=== PATIENT | female | born 1955 | race Caucasian/White ===

== ENCOUNTER 2017-01-27 20:49 | Emergency (ER) | payer OTHER ==
[~2017-01-27] VITALS: Ht 152.4 cm; Wt 74.8 kg
[2017-01-27 22:00] LABS: BASOPHIL % 0.6 % (0-2); PLATELET COUNT 201 x10^3mcL (130-400)
[2017-01-27 22:01] LABS: RED CELL DISTRIBUTION WIDTH 14.7 % (11.5-14.5)
[2017-01-27 22:10] LABS: CALCIUM 9.4 mg/dL (8.5-10.1); CARBON DIOXIDE 27.2 mmol/L (21-32); CHLORIDE SERUM 103 mmol/L (98-107); CREATININE SERUM 0.8 mg/dL (0.6-1.0); GFR1 > 60 mL/min; GLUCOSE SERUM 152 mg/dL (74-106); POTASSIUM SERUM 3.3 mmol/L (3.5-5.1); SODIUM SERUM 141 mmol/L (136-145)
[2017-01-27 22:14] LABS: ALBUMIN 4.3 g/dL (3.4-5.0); ALKALINE PHOSPHATASE 58 U/L (46-116); ALT/SGPT 34 U/L (14-59); AST/SGOT 24 U/L (15-37); TOTAL PROTEIN, SERUM 7.7 g/dL (6.4-8.2)
[2017-01-28 02:07] VITALS: BP 125/70
== END 2017-01-28 02:07 | disposition home or self-care (01) ==
LOC: ED 20:49
PROVIDERS: Emergency Medicine
DX: H81.10 Benign paroxysmal vertigo, unspecified ear (principal); H83.09 Labyrinthitis, unspecified ear; R11.2 Nausea with vomiting, unspecified
CPT/HCPCS: 83880; J2405; J2765; J7030; J8597; Q0092

== ENCOUNTER 2017-02-14 23:01 | Inpatient (IN) | payer OTHER ==
[~2017-02-14] VITALS: Ht 152.4 cm; Wt 68.0 kg
--- NOTE | 2017-02-14 23:41 | NUR ---
EKG IN PROGRESS.
--- NOTE | 2017-02-14 23:43 | NUR ---
REC'D A 61 YEAR OLD FEMALE IN RM OB WITH C/O DIZZINESS X 1 DAY. PER PT, "IT FEELS LIKE THE ROOM IS SPINNING". PT REPORTS SIMILAR SYMPTOMS 2 WEEKS AGO AND PRESCRIBED ZOFRAN. PER PT, "I DIDNT TAKE THE MEDICINE BECAUSE I WORKED AND FORGOT WHERE I PLACED THE MEDICINE". PT HAD 1 EPISODE OF VOMITING IN THE ROOM. PT AAOX4, RESP EVEN AND UNLABORED. ON CM. CALL LIGHT WITHIN REACH, WILL CONTINUE TO MONITOR.
[2017-02-15 00:01] LABS: BASOPHIL % 0.3 % (0-2); PLATELET COUNT 200 x10^3mcL (130-400)
[2017-02-15 00:05] LABS: CALCIUM 8.9 mg/dL (8.5-10.1); CARBON DIOXIDE 27.1 mmol/L (21-32); CREATININE SERUM 1.1 mg/dL (0.6-1.0); POTASSIUM SERUM 3.3 mmol/L (3.5-5.1); RED CELL DISTRIBUTION WIDTH 14.8 % (11.5-14.5)
[2017-02-15 00:09] LABS: ALBUMIN 4.1 g/dL (3.4-5.0); BILIRUBIN TOTAL 0.4 mg/dL (0.20-1.00); TOTAL PROTEIN, SERUM 7.3 g/dL (6.4-8.2)
[2017-02-15 00:18] LABS: CK-MB 0.6 ng/mL (0-3.6)
--- NOTE | 2017-02-15 00:30 | NUR ---
PT AAOX4, RESP EVEN AND UNLABORED. PT REPORTS SENSITIVITY TO THE LIGHT.
--- NOTE | 2017-02-15 01:29 | NUR ---
PT AAOX4, RESP EVEN AND UNLABORED. PT REPORTS "TURNING OFF THE LIGHT HELPS". ON CM WILL CONTINUE TO MONITOR.
--- NOTE | 2017-02-15 01:40 | NUR ---
REPORT GIVEN TO MOISES ALEXIS TO ASSUME CARE .
[2017-02-15 02:13] VITALS: BP 145/68
--- NOTE | 2017-02-15 02:29 | NUR ---
RECIEVED PT FROM ER VIA GURNEY ACCOMPANIED BY THE NURSE. PT IS A/A/O X4. C/O DIZZINESS AND SENSITIVITY TO LIGHT. BREATH SOUNDS CLEAR. BREATHING EVEN AND UNLABORED ON ROOM AIR, SPO2 99%. DENIES CHEST PAIN AND PRESSURE. ON TELE # 19, SINUS RHYTHYM ON THE MONITOR. BOWEL SOUNDS ACTIVE. NO C/O N/V AND ABD PAIN THUS FAR. IV IV NOTED ON THE RAC. MADE PT COMFORTABLE. PLACED CALL LIGHT WITH IN REACH. WILL CONTINUE TO MONITOR.
[2017-02-15] MEDS ORDERED: ONDANSETRON4 M3 PO (04:07)
[2017-02-15] MEDS ORDERED: MECLIZINE HYDRO25 M1 PO (04:07)
[2017-02-15 04:13] LABS: CHOLESTEROL/HDL RATIO 3.6; MAGNESIUM 1.8 mg/dL (1.8-2.4); PHOSPHOROUS 2.3 mg/dL (2.5-4.9)
[2017-02-15 04:18] LABS: T3 TOTAL 1.51 ng/mL
[2017-02-15 04:19] LABS: UA SPECIFIC GRAVITY <=1.005 (1.005-1.035); microscopic required? YES; urine erythrocyte TRACE (NEGATIVE)
[2017-02-15 04:21] LABS: FREE T4 1.13 ng/dL (0.76-1.46); FREE THYROXINE INDEX 2.7 ug/dL (1.4-4.5); T4(THYROXINE) 8.8 ug/dL (4.7-13.3)
--- NOTE | 2017-02-15 05:12 | NUR ---
PT RESTING WITH EYES CLOSED. EASILY AROUSABLE WITH VERBAL STIMULI. WHEN ASKED ABOUT THE DIZZINESS. PT STATED "I FEEL LESS DIZZY WHEN IM JUST LYING DOWN. AND IT HEPLS WHEN MY EYES IS CLOSED.". DENIES NAUSEA THUS FAR. IV INTACT AND INFUSING ORDERED. MADE PT COMFORTABLE. WILL ENDORSE TO THE AM NURSE ACCORDINGLY.
[2017-02-15 06:04] VITALS: BP 147/76
--- NOTE | 2017-02-15 07:40 | NUR ---
PT AWAKE IN BED, NO ACUTE DISTRESS. PT ABLE TO AMBULATE TO BED SIDE COMMODE AND URINATE. PT NOT COMPLAINING OF ANY PAIN AT THIS TIME. PT GETTING ULTRASOUND DONE. IV FLUIDS INFUSING. CALL LIGHT WITHIN REACH. WILL CONTINUE TO MONITOR.
[2017-02-15 08:00] VITALS: BP 111/49
--- NOTE | 2017-02-15 11:48 | NUR ---
P.T. NOTES RECEIVED PT EVAL ORDER. CHART REVIEWED. Pt CLEARED PER RN FOR PT EVAL. NOTED PATIENT NOT IN ROOM FOR EVAL. PER RN AND DOCTOR, Pt WENT DOWN FOR MRI. Pt PENDING MRI TO R/O BRAINSTEM INVOLVEMENT, PER DR WASHINGTON, SEVERE NYSTAGMUS. WILL AWAIT MRI RESULTS PRIOR TO PT EVAL. 1 PVE
--- NOTE | 2017-02-15 12:45 | NUR ---
PT SITTING UP IN BED. NO ACUTE DISTRESS. C/O MILD DIZZINESS BUT TOLERABLE AT THIS TIME. WITH NYSTAGMUS TO BILAT EYES. NO C/O NAUSEA. IVF INFUSING. BED IN LOWEST POSITION, CALL LIGHT WITHIN REACH. WILL CONTINUE TO MONITOR.
[2017-02-15 13:38] VITALS: BP 127/64
--- NOTE | 2017-02-15 14:30 | NUR ---
PT ASLEEP IN BED, NO ACUTE DISTRESS. IV FLUIDS INFUSING. CALL LIGHT WITHIN REACH. WILL CONTINUE TO MONITOR
[2017-02-15 17:36] VITALS: BP 114/54
--- NOTE | 2017-02-15 18:52 | NUR ---
PT RESTING IN BED, DOCTOR TUAN AT BEDSIDE ASSESSING PT. NO ACUTE DISTRESS. IV FLUIDS INFUSING. CALL LIGHT WITHIN REACH, BED IN LOWEST POSITION. WILL ENDORSE INCOMING SHIFT
--- NOTE | 2017-02-15 20:17 | NUR ---
PT CURRENTLY RESTING IN BED, NO ACUTE DISTRESS. A/O X4, C/O MILD DIZZINESS. TELE #19 SHOWING SINUS BRADYCARDIA, DENIES CHEST PAIN. PULSES PALPABLE IN ALL EXTREMITIES, NO EDEMA NOTED. LUNG SOUNDS CTA BILATERALLY. BOWEL SOUNDS ACTIVE, LAST BM 02/14/17. VOIDING WELL. MILD GENERALIZED WEAKNESS NOTED, AMBULATORY WITH ASSIST. SKIN INTACT. DENIES PAIN. IV PATENT AND INTACT. BED IN LOWEST POSITION, SIDE RAILS UP X2, SCDS IN PLACE, CALL LIGHT WITHIN REACH. WILL CONTINUE TO MONITOR.
[2017-02-15 21:56] VITALS: BP 107/49
[2017-02-16] VITALS (7 sets, daily range): BP systolic 99–176; BP diastolic 50–78
--- NOTE | 2017-02-16 01:00 | NUR ---
PT CURRENTLY RESTING IN BED, NO ACUTE DISTRESS. WILL CONTINUE TO MONITOR.
--- NOTE | 2017-02-16 05:45 | NUR ---
PT SLEPT PERIODICALLY THROUGHOUT NIGHT, NO ACUTE DISTRESS. ALL NEEDS MET AND ATTENDED TO. NO SIGNIFICANT CHANGES. IV PATENT AND INTACT. BED IN LOWEST POSITION, SIDE RAILS UP X2, SCDS IN PLACE, CALL LIGHT WITHIN REACH. WILL ENDORSE CARE TO ONCOMING NURSE.
[2017-02-16 06:07] LABS: BASOPHIL % 0.4 % (0-2); PLATELET COUNT 168 x10^3mcL (130-400)
[2017-02-16 06:25] LABS: CALCIUM 7.9 mg/dL (8.5-10.1); CARBON DIOXIDE 26.6 mmol/L (21-32); CHLORIDE SERUM 110 mmol/L (98-107); CREATININE SERUM 0.7 mg/dL (0.6-1.0); GFR1 > 60 mL/min; GLUCOSE SERUM 96 mg/dL (74-106); MAGNESIUM 1.9 mg/dL (1.8-2.4); PHOSPHOROUS 3.9 mg/dL (2.5-4.9); POTASSIUM SERUM 4.1 mmol/L (3.5-5.1); SODIUM SERUM 142 mmol/L (136-145)
[2017-02-16 06:33] LABS: RED CELL DISTRIBUTION WIDTH 15.1 % (11.5-14.5)
--- NOTE | 2017-02-16 07:35 | NUR ---
RECEIVED PT IN NO ACUTE DISTRESS. AAOX4. C/O MILD DIZZINESS AND NOLASCO BUT TOLERABLE AT THIS TIME. NO NYSTAGMUS NOTED AT THIS TIME. DENIES PAIN. IVF INFUSING. BED IN LOWEST POSITION, SIDE RAILS UP X2. CALL LIGHT WITHIN REACH. WILL CONTINUE TO MONITOR.
--- NOTE | 2017-02-16 12:11 | NUR ---
PT AMBULATED IN HALLWAY 2X. GAIT STEADY. C/O MILD DIZZINESS AND NOLASCO BUT TOLERABLE. IVF IVF INFUSING. WILL CONTINUE TO MONITOR.
--- NOTE | 2017-02-16 18:31 | NUR ---
PT SITTING UP IN CHAIR EATING DINNER. NO ACUTE DISTRESS. DENIES DIZZINESS AT THIS TIME. NO C/O PAIN. IVF TO RAC. CALL LIGHT WITHIN REACH. WILL ENDORSE TO INCOMING SHIFT.
--- NOTE | 2017-02-16 19:30 | NUR ---
PT IS ALERT AND ORIENTED. PLEASANT AND COOPERATIVE. NO C/O DIZZINESS. PT STATED SHE IS ABLE TO WALK WITHOUT DIZZINESS THIS TIME. PT ALSO STATED THAT SHE WAS EVALUATED WITH [facility] BUT SHE IS NOT GOING THERE BECAUSE SHE IS ALRIGHT. LUNGS CLEAR ON AUSCULTAITONS BILATERALLY. BOWEL SOUNDS ACTIVE AND PRESENT. NO DISTENTION NOTED. PT IS AMBULATORY. HARLEY SCD'S TO BOTH BLE FOR DVT PROPHYLAXIS. IV HEPLOCK. PT WILL RECEIVED ROCPHINE FOR UTI. WILL MONITOR.
--- NOTE | 2017-02-17 03:02 | NUR ---
PT WAS MEDICTED WITH ATIVAN FOR ANXIETY. WILL MONITOR.
[2017-02-17 05:44] VITALS: BP 108/54
--- NOTE | 2017-02-17 05:46 | NUR ---
PT IS RESTING RIGHT NOW SLEEPING GOOD, NOTED THAT AFTER A DOSE OF ATIVAN PO SHE RESTED. AND THE BP IS WNL SYSTOLIC BP 108/54. FROM BEING ALMOST 200 SYSTOLIC RIGHT NOW. WILL MONITOR.
--- NOTE | 2017-02-17 07:30 | NUR ---
PT IS ALERT AND ORIENTED X 4. PLEASANT AND COOPERATIVE. LUNGS CLEAR ON AUSCULTATIONS BILATERALLY UPPER AND LOWER BASES. 02SAT 98%. ROOM AIR. PT WAS ABLE TO REST AFTER THE ATIVAN PO GIVEN. PT VERBALIZED SHE WAS ANXIOUS. HEPLOCK IN THE RIGHT AC. PATENT AND INTACT. NO C/O DIZZINESS. STILL GETTING ROCEPHIN IVPB FOR UTI. NO ADVERSE REACTION NOTED. WILL MONITOR. WAS RESTLESS LAST NIGHT AND THE BP WAS ELEVATED. SHE CALMED DOWN AFTER TALKING TO DR. HAGEN AND THE ATIVAN. WILL MONITOR.
[2017-02-17 09:19] VITALS: BP 137/81
--- NOTE | 2017-02-17 10:30 | NUR ---
REPORT RECIEVED FROM PM NURSE, NATHAN ENDORCED. PT RESTING IN BED NO SIGNS OF DISTRESS. CALL LIGHT IN REACH WILL CONTINUE TO MONITOR.
[2017-02-17] MEDS ORDERED: SCOP TD (11:45)
[2017-02-17] MEDS ORDERED: COL100 PO (11:46)
[2017-02-17 12:50] VITALS: BP 137/81
--- NOTE | 2017-02-17 13:37 | NUR ---
DISCHARGE INSTRUCTIONS GIVEN TO PT, PT MADE AWARE OF FOLLOW UP APPT, AND OF PRESCRIPTIONS. PT VERBALIZED UNDERSTANDING. IV DC'D CATHETER TIP INTACT. TELE REMOVED CLEANED AND RETURNED TO MONITOR ROOM. ALL BELONGINGS WITH THE PT. PT ACCOMPANIES TO LOBBY.
== END 2017-02-17 13:38 | disposition home or self-care (01) | DRG 111 ==
LOC: ED 23:01 → DU 02-15 00:35
PROVIDERS: Emergency Medicine; ADMIT Family Medicine
DX: H81.10 Benign paroxysmal vertigo, unspecified ear (principal); N17.0 Acute kidney failure with tubular necrosis; E87.6 Hypokalemia; N39.0 Urinary tract infection, site not specified; E78.5 Hyperlipidemia, unspecified; E83.39 Other disorders of phosphorus metabolism; E02 Subclinical iodine-deficiency hypothyroidism; Z83.3 Family history of diabetes mellitus; G90.9 Disorder of the autonomic nervous system, unspecified; I65.23 Occlusion and stenosis of bilateral carotid arteries; Z86.73 Personal history of transient ischemic attack (TIA), and cerebral infarction without residual deficits
CPT/HCPCS: 83880; 84439; A9579; J0696; J2405; J7030; J8597; Q0092; Q0163

== ENCOUNTER 2017-04-30 17:57 | Emergency (ER) | payer OTHER ==
[~2017-04-30] VITALS: Ht 152.4 cm; Wt 71.7 kg
[~2017-04-30 17:57] MED LIST: COL100 PO; MECLIZINE HYDRO25 M1 PO; ONDANSETRON4 M3 PO; SCOP TD
[2017-04-30 18:38] LABS: BASOPHIL % 0.4 % (0-2); PLATELET COUNT 211 x10^3mcL (130-400)
[2017-04-30 18:40] LABS: RED CELL DISTRIBUTION WIDTH 14.8 % (11.5-14.5)
[2017-04-30 18:49] LABS: CALCIUM 9.1 mg/dL (8.5-10.1); CARBON DIOXIDE 28.3 mmol/L (21-32); CHLORIDE SERUM 104 mmol/L (98-107); CREATININE SERUM 0.8 mg/dL (0.6-1.0); GFR1 > 60 mL/min; GLUCOSE SERUM 117 mg/dL (74-106); POTASSIUM SERUM 3.7 mmol/L (3.5-5.1); SODIUM SERUM 140 mmol/L (136-145)
[2017-04-30 18:53] LABS: ALBUMIN 4.2 g/dL (3.4-5.0); ALKALINE PHOSPHATASE 68 U/L (46-116); ALT/SGPT 23 U/L (14-59); AMYLASE 79 U/L (25-115); AST/SGOT 18 U/L (15-37); BILIRUBIN TOTAL 0.5 mg/dL (0.20-1.00); LIPASE 219 IU/L (73-393)
[2017-04-30 20:30] VITALS: BP 140/77
== END 2017-04-30 20:30 | disposition home or self-care (01) ==
LOC: ED 17:57
PROVIDERS: Emergency Medicine
DX: H81.13 Benign paroxysmal vertigo, bilateral (principal); R11.10 Vomiting, unspecified
CPT/HCPCS: 83880; J2405; J2765; J7030; J8597

== ENCOUNTER 2017-09-16 03:45 | Inpatient (IN) | payer OTHER ==
[~2017-09-16] VITALS: Ht 152.4 cm; Wt 71.7 kg
[2017-09-16 03:50] VITALS: Ht 152.4 cm; Wt 71.7 kg
[2017-09-16 04:23] LABS: BASOPHIL % 0.2 % (0-2); PLATELET COUNT 188 x10^3mcL (130-400); RED CELL DISTRIBUTION WIDTH 14.3 % (11.5-14.5)
[2017-09-16 04:42] LABS: CALCIUM 8.8 mg/dL (8.5-10.1); CARBON DIOXIDE 26.4 mmol/L (21-32); CHLORIDE SERUM 103 mmol/L (98-107); CREATININE SERUM 0.8 mg/dL (0.6-1.0); GFR1 > 60 mL/min; GLUCOSE SERUM 117 mg/dL (74-106); POTASSIUM SERUM 3.8 mmol/L (3.5-5.1); SODIUM SERUM 140 mmol/L (136-145)
[2017-09-16 04:48] LABS: ALKALINE PHOSPHATASE 56 U/L (46-116); ALT/SGPT 30 U/L (14-59); AST/SGOT 23 U/L (15-37); BILIRUBIN TOTAL 1.1 mg/dL (0.20-1.00); TOTAL PROTEIN, SERUM 7.4 g/dL (6.4-8.2)
[2017-09-16 04:56] LABS: CK-MB < 0.5 ng/mL (0-3.6); CREATINE KINASE 56 U/L (26-192)
[2017-09-16 05:38] LABS: UA SPECIFIC GRAVITY <=1.005 (1.005-1.035); microscopic required? YES; urine erythrocyte TRACE (NEGATIVE)
[2017-09-16 06:37] LABS: AMPHETAMINE QUAL UR NONE DETECTED (NEG <=1000)
[2017-09-16 06:45] VITALS: BP 139/76
[2017-09-16 07:30] LABS: MAGNESIUM 2.1 mg/dL (1.8-2.4); PHOSPHOROUS 2.1 mg/dL (2.5-4.9)
[2017-09-16 07:37] LABS: T3 TOTAL 1.34 ng/mL
[2017-09-16 07:38] LABS: FREE THYROXINE INDEX 2.2 ug/dL (1.4-4.5); T4(THYROXINE) 7.4 ug/dL (4.7-13.3)
[2017-09-16 07:39] LABS: CHOLESTEROL/HDL RATIO 3.1
[2017-09-16 09:57] VITALS: BP 135/81
[2017-09-16 14:55] VITALS: BP 145/78
[2017-09-16 17:57] VITALS: BP 167/75
[2017-09-16 21:26] VITALS: BP 142/77
[2017-09-17 04:33] VITALS: BP 115/61
[2017-09-17 07:42] LABS: BASOPHIL % 0.6 % (0-2); PLATELET COUNT 173 x10^3mcL (130-400); RED CELL DISTRIBUTION WIDTH 14.5 % (11.5-14.5)
[2017-09-17 07:55] LABS: CALCIUM 8.2 mg/dL (8.5-10.1); CARBON DIOXIDE 25.8 mmol/L (21-32); CHLORIDE SERUM 107 mmol/L (98-107); CREATININE SERUM 0.7 mg/dL (0.6-1.0); GFR1 > 60 mL/min; GLUCOSE SERUM 104 mg/dL (74-106); POTASSIUM SERUM 3.4 mmol/L (3.5-5.1); SODIUM SERUM 142 mmol/L (136-145)
[2017-09-17 09:23] VITALS: BP 131/68
[2017-09-17] MEDS ORDERED: COUGH100 MG/5 M PO (09:37)
[2017-09-17] MEDS ORDERED: TAM75 PO (09:37)
[2017-09-17 12:31] VITALS: BP 131/68
== END 2017-09-17 13:30 | disposition home or self-care (01) | DRG 384 ==
LOC: ED 03:45 → DU 05:35
PROVIDERS: Emergency Medicine; Family Medicine
DX: S00.03XA Contusion of scalp, initial encounter (principal); S09.90XA Unspecified injury of head, initial encounter; G90.8 Other disorders of autonomic nervous system; E83.51 Hypocalcemia; I08.1 Rheumatic disorders of both mitral and tricuspid valves; W18.39XA Other fall on same level, initial encounter; Y93.89 Activity, other specified; Y92.89 Other specified places as the place of occurrence of the external cause; Y99.8 Other external cause status; J11.1 Influenza due to unidentified influenza virus with other respiratory manifestations; Z83.3 Family history of diabetes mellitus; E66.3 Overweight; Z68.30 Body mass index [BMI] 30.0-30.9, adult
CPT/HCPCS: 83880; 84439; 87804; J7030; Q0092

== ENCOUNTER 2017-10-29 12:39 | Emergency (ER) | payer OTHER ==
[~2017-10-29] VITALS: Ht 152.4 cm; Wt 72.1 kg
[~2017-10-29 12:39] MED LIST changes: +COUGH100 MG/5 M PO; +TAM75 PO
[2017-10-29 12:53] VITALS: Ht 152.4 cm; Wt 72.1 kg
[2017-10-29 14:16] LABS: BASOPHIL % 0.3 % (0-2); PLATELET COUNT 263 x10^3mcL (130-400)
[2017-10-29 14:24] LABS: RED CELL DISTRIBUTION WIDTH 14.7 % (11.5-14.5)
[2017-10-29 14:30] LABS: CALCIUM 9.7 mg/dL (8.5-10.1); CARBON DIOXIDE 24.5 mmol/L (21-32); CHLORIDE SERUM 102 mmol/L (98-107); CREATININE SERUM 0.8 mg/dL (0.6-1.0); GFR1 > 60 mL/min; GLUCOSE SERUM 111 mg/dL (74-106); POTASSIUM SERUM 3.5 mmol/L (3.5-5.1); SODIUM SERUM 141 mmol/L (136-145)
[2017-10-29 14:45] LABS: ALBUMIN 4.6 g/dL (3.4-5.0); ALKALINE PHOSPHATASE 66 U/L (46-116); ALT/SGPT 34 U/L (14-59); AST/SGOT 23 U/L (15-37); BILIRUBIN TOTAL 0.9 mg/dL (0.20-1.00); TOTAL PROTEIN, SERUM 8.3 g/dL (6.4-8.2)
[2017-10-29 15:12] VITALS: BP 124/61
== END 2017-10-29 15:12 | disposition home or self-care (01) ==
LOC: ED 12:39
PROVIDERS: Emergency Medicine
DX: R42 Dizziness and giddiness (principal); R07.9 Chest pain, unspecified
CPT/HCPCS: J2060; Q0092

== ENCOUNTER 2017-10-30 22:49 | Emergency (ER) | payer OTHER ==
[~2017-10-30] VITALS: Ht 152.4 cm; Wt 72.1 kg
[2017-10-30 23:02] VITALS: Ht 152.4 cm; Wt 72.1 kg
[2017-10-31 00:41] LABS: BASOPHIL % 0.3 % (0-2); PLATELET COUNT 247 x10^3mcL (130-400)
[2017-10-31 01:03] LABS: CALCIUM 9.2 mg/dL (8.5-10.1); CARBON DIOXIDE 27.7 mmol/L (21-32); CHLORIDE SERUM 109 mmol/L (98-107); CREATININE SERUM 0.8 mg/dL (0.6-1.0); GFR1 > 60 mL/min; GLUCOSE SERUM 122 mg/dL (74-106); POTASSIUM SERUM 3.8 mmol/L (3.5-5.1); SODIUM SERUM 147 mmol/L (136-145)
[2017-10-31 01:08] LABS: ALBUMIN 4.1 g/dL (3.4-5.0); ALKALINE PHOSPHATASE 59 U/L (46-116); ALT/SGPT 29 U/L (14-59); AST/SGOT 21 U/L (15-37); TOTAL PROTEIN, SERUM 7.5 g/dL (6.4-8.2)
[2017-10-31 02:47] VITALS: BP 145/82
== END 2017-10-31 02:47 | disposition home or self-care (01) ==
LOC: ED 22:49
PROVIDERS: Emergency Medicine
DX: I10 Essential (primary) hypertension (principal); R42 Dizziness and giddiness
CPT/HCPCS: 83880; J0780; J1200; J1885; J3490; Q0092

== ENCOUNTER 2017-11-01 23:03 | Inpatient (IN) | payer OTHER ==
[~2017-11-01] VITALS: Ht 152.4 cm; Wt 72.6 kg
[2017-11-01 23:06] VITALS: Ht 152.4 cm; Wt 72.6 kg
[2017-11-02] VITALS (7 sets, daily range): BP systolic 99–185; BP diastolic 53–86
[2017-11-02] MEDS ORDERED: HYDROCHLOROTH12.5 M2 PO ×2 (00:36→00:37)
[2017-11-02 00:38] LABS: BASOPHIL % 0.4 % (0-2); PLATELET COUNT 254 x10^3mcL (130-400)
[2017-11-02] MEDS ORDERED: GOOD SENSE ASPI81 M3 (00:38)
[2017-11-02 00:39] LABS: RED CELL DISTRIBUTION WIDTH 14.8 % (11.5-14.5)
[2017-11-02 00:45] LABS: CALCIUM 8.4 mg/dL (8.5-10.1); CARBON DIOXIDE 27.4 mmol/L (21-32); CHLORIDE SERUM 102 mmol/L (98-107); CREATININE SERUM 0.9 mg/dL (0.6-1.0); GFR1 > 60 mL/min; GLUCOSE SERUM 117 mg/dL (74-106); POTASSIUM SERUM 3.7 mmol/L (3.5-5.1); SODIUM SERUM 140 mmol/L (136-145)
[2017-11-02 00:50] LABS: ALBUMIN 4.2 g/dL (3.4-5.0); ALKALINE PHOSPHATASE 63 U/L (46-116); ALT/SGPT 31 U/L (14-59); AST/SGOT 20 U/L (15-37); BILIRUBIN TOTAL 0.6 mg/dL (0.20-1.00); TOTAL PROTEIN, SERUM 7.8 g/dL (6.4-8.2)
[2017-11-02 01:02] LABS: T3 TOTAL 1.41 ng/mL
[2017-11-02 01:20] LABS: CHOLESTEROL/HDL RATIO 3.2; PHOSPHOROUS 3.4 mg/dL (2.5-4.9)
[2017-11-02 01:28] LABS: FREE T4 1.22 ng/dL (0.76-1.46); FREE THYROXINE INDEX 2.7 ug/dL (1.4-4.5); T4(THYROXINE) 8.8 ug/dL (4.7-13.3)
[2017-11-02 01:57] LABS: microscopic required? YES; urine erythrocyte 1+ (NEGATIVE)
[2017-11-02 02:14] LABS: AMPHETAMINE QUAL UR NONE DETECTED (NEG <=1000)
[2017-11-02] MEDS ORDERED: COZAAR100 MG PO (04:32)
[2017-11-03] VITALS (11 sets, daily range): BP systolic 112–199; BP diastolic 57–103
[2017-11-03 06:49] LABS: CALCIUM 8.7 mg/dL (8.5-10.1); CARBON DIOXIDE 26.5 mmol/L (21-32); CHLORIDE SERUM 107 mmol/L (98-107); CREATININE SERUM 0.6 mg/dL (0.6-1.0); GFR1 > 60 mL/min; GLUCOSE SERUM 89 mg/dL (74-106); MAGNESIUM 2.3 mg/dL (1.8-2.4); PHOSPHOROUS 3.5 mg/dL (2.5-4.9); POTASSIUM SERUM 3.6 mmol/L (3.5-5.1); SODIUM SERUM 142 mmol/L (136-145)
[2017-11-03 06:57] LABS: BASOPHIL % 0.6 % (0-2); PLATELET COUNT 223 x10^3mcL (130-400)
[2017-11-04 06:13] VITALS: BP 161/78
[2017-11-04 06:58] LABS: BASOPHIL % 0.2 % (0-2); PLATELET COUNT 229 x10^3mcL (130-400)
[2017-11-04 07:11] LABS: RED CELL DISTRIBUTION WIDTH 14.6 % (11.5-14.5)
[2017-11-04 07:18] LABS: CALCIUM 8.7 mg/dL (8.5-10.1); CARBON DIOXIDE 24.5 mmol/L (21-32); CHLORIDE SERUM 107 mmol/L (98-107); CREATININE SERUM 0.6 mg/dL (0.6-1.0); GFR1 > 60 mL/min; GLUCOSE SERUM 91 mg/dL (74-106); MAGNESIUM 2.2 mg/dL (1.8-2.4); PHOSPHOROUS 3.6 mg/dL (2.5-4.9); POTASSIUM SERUM 3.3 mmol/L (3.5-5.1); SODIUM SERUM 144 mmol/L (136-145)
[2017-11-04 08:26] VITALS: BP 150/87
[2017-11-04 08:27] VITALS: BP 152/80
[2017-11-04 08:58] VITALS: BP 145/72
[2017-11-04 11:07] VITALS: BP 128/75; BP 129/71
[2017-11-04] MEDS ORDERED: NOR5 PO (11:44)
[2017-11-04 12:01] VITALS: BP 128/75
== END 2017-11-04 13:42 | disposition home or self-care (01) | DRG 199 ==
LOC: ED 23:03 → DU 11-02 00:16
PROVIDERS: Emergency Medicine; Family Medicine Sports Medicine
DX: I16.0 Hypertensive urgency (principal); N17.0 Acute kidney failure with tubular necrosis; I10 Essential (primary) hypertension; G90.8 Other disorders of autonomic nervous system; F43.23 Adjustment disorder with mixed anxiety and depressed mood; E66.9 Obesity, unspecified; Z68.31 Body mass index [BMI] 31.0-31.9, adult; R31.9 Hematuria, unspecified; E78.5 Hyperlipidemia, unspecified; E83.51 Hypocalcemia; H40.10X0 Unspecified open-angle glaucoma, stage unspecified; M94.0 Chondrocostal junction syndrome [Tietze]
CPT/HCPCS: 83880; 84439; J0360; J7030; Q0092

== ENCOUNTER 2020-10-05 12:17 | Emergency (ER) | payer OTHER ==
[~2020-10-05] VITALS: Ht 160 cm; Wt 63.5 kg
[~2020-10-05 12:17] MED LIST changes: +COZAAR100 MG PO; +GOOD SENSE ASPI81 M3; +HYDROCHLOROTH12.5 M2 PO; +NOR5 PO
[2020-10-05 12:25] VITALS: Ht 160 cm; Wt 63.5 kg
[2020-10-05 13:32] LABS: BASOPHIL % 0.3 % (0.2-1.3); PLATELET COUNT 216 x10^3mcL (179-408); RED CELL DISTRIBUTION WIDTH 14.2 % (12.3-17.7)
[2020-10-05 13:48] LABS: CALCIUM 9.5 mg/dL (8.5-10.1); CARBON DIOXIDE 23.5 mmol/L (21-32); CHLORIDE SERUM 103 mmol/L (98-107); CREATININE SERUM 0.7 mg/dL (0.6-1.0); GFR1 > 60 mL/min; GLUCOSE SERUM 147 mg/dL (74-106); POTASSIUM SERUM 3.5 mmol/L (3.5-5.1); SODIUM SERUM 140 mmol/L (136-145)
[2020-10-05 13:52] LABS: ALKALINE PHOSPHATASE 46 U/L (46-116); ALT/SGPT 25 U/L (14-59); AST/SGOT 14 U/L (15-37); BILIRUBIN TOTAL 0.7 mg/dL (0.20-1.00); TOTAL PROTEIN, SERUM 7.2 g/dL (6.4-8.2)
[2020-10-05 15:24] VITALS: BP 105/53
== END 2020-10-05 15:24 | disposition home or self-care (01) ==
LOC: ED 12:17
PROVIDERS: Emergency Medicine
DX: K29.00 Acute gastritis without bleeding (principal); F41.9 Anxiety disorder, unspecified
CPT/HCPCS: 83880; Q0162